=== PATIENT | female | born 1980 | race Two or more races ===

== ENCOUNTER 2025-03-25 06:57 | Day surgery (SDC) | payer BC ==
[2025-03-25] MEDS: Lactated Ringers 1,000 ML IV SCH (07:13)
[2025-03-25] MEDS ORDERED: Propofol 200 MG/20 ML SDV ONE (08:19)
[2025-03-25] MEDS ORDERED: fentaNYL 100 MCG/2 ML SDV ONE (08:20)
[2025-03-25] MEDS ORDERED: Midazolam 1 MG/ML 2 ML SDV ONE (08:20)
== END 2025-03-25 13:06 | disposition home or self-care (01) ==
LOC: VM.SDS 06:57
PROVIDERS: ATTEND Student in an Organized Health Care Education/Training Program
DX: Z12.11 Encounter for screening for malignant neoplasm of colon (principal); D12.3 Benign neoplasm of transverse colon; D12.5 Benign neoplasm of sigmoid colon; I10 Essential (primary) hypertension; E11.42 Type 2 diabetes mellitus with diabetic polyneuropathy; J45.20 Mild intermittent asthma, uncomplicated; F33.0 Major depressive disorder, recurrent, mild; E78.00 Pure hypercholesterolemia, unspecified; K21.9 Gastro-esophageal reflux disease without esophagitis; Z79.899 Other long term (current) drug therapy
CPT/HCPCS: 00811; 82947; J2250; J2704; J3010; J7120